=== PATIENT | male | born 1990 | race Caucasian/White ===

== ENCOUNTER 2017-01-23 11:49 | Emergency (ER) | payer MEDICAID ==
[~2017-01-23] VITALS: Ht 180.3 cm; Wt 77.2 kg
[2017-01-23] MEDS ORDERED: KETOROLAC TROMETHAMINE 60 MG/2 ML VIAL IM ONE (12:30)
[2017-01-23 14:59] VITALS: BP 128/82
== END 2017-01-23 15:10 | disposition left against medical advice (07) ==
LOC: EMS 11:49
DX: S29.012A Strain of muscle and tendon of back wall of thorax, initial encounter (principal); Z88.0 Allergy status to penicillin; V49.9XXA Car occupant (driver) (passenger) injured in unspecified traffic accident, initial encounter; Y93.89 Activity, other specified; Y92.488 Other paved roadways as the place of occurrence of the external cause; Y99.8 Other external cause status
CPT/HCPCS: 96372; 99283; J1885